=== PATIENT | male | born 1950 | race Caucasian/White ===

== ENCOUNTER 2021-03-21 12:25 | Observation (INO) ==
[2021-03-21 12:40] VITALS: BMI 36.5
--- NOTE | 2021-03-21 13:53 | DR.URIAD ---
HPI Time Seen Time Seen by Provider: 03/21/21 13:49 PCP Primary Care Physician: Page HPI Comment HPI Comment: PATIENT WITH A HISTORY OF COPD, TYPE 2 DIABETES AND HYPERTENSION COMPLAINS OF DYSPNEA, NONPRODUCTIVE COUGH X 4 DAYS, LEFT SIDED PAIN UPON INSP IRATION. HAS HAD MODERNA VACCINES. DENIES DIAPHOREIS AND PALPITATIONS. Complaint Chief Complaint Doctors Comments: COUGH, LEFT SIDED CHEST PAIN Chief Complaint:: Pt c/o fever . He denies fever since that day. He rep orts cough, abd from coughing, shortness of breath, nausea and fatigue. COVID-19 Coronavirus risk:travel/contact w/high risk person: No Has patient experienced Coronavirus symptoms: Yes Coronavirus symptoms experienced: Fever and Shortness of Breath Source History Provided: Patient and Significant Other Mode of Arrival Mode of Arrival: Ambulatory Timing Onset of Chief Complaint: 03/21/21 Context History of Respiratory: Asthma (COPD) Quality Quality of Cough: Nonproductive Associated Signs and Symptoms Other Signs and Symptoms: Cough PMH PMH Past Medical History: Yes Past Medical History: COPD, Diabetes and Hypertension Past Surgical History: Yes Surgical History: Ortho Surgery Family History History of Family Medical Conditions: Yes Family Medical History: Hypertension Social History Does patient currently use any type of tobacco product: No Have you used tobacco products in the last 12 months: No Type of Tobacco Use: None Does any household member use tobacco: No Alcohol Use: None Do you use any recreational Drugs:: No Lives With: Family Lives Where: Home Travel Risk Coronavirus risk:travel/contact w/high risk person: No Has patient experienced Coronavirus symptoms: Yes Coronavirus symptoms experienced: Fever and Shortness of Breath Infectious screening In the last 2 months have you had wt loss of >10#?: NO Have you had fever, night sweats or hemotysis?: No Have you traveled outside the country in the last 6 months?: No Isolation: Droplet ROS Review of Systems Constitutional: No Symptoms Reported Eyes: No Symptoms Reported ENTM: No Symptoms Reported Respiratoy: Dry Cough Cardiovascular: Chest Pain Gastrointestinal/Abdominal: No Symptoms Reported Genitourinary: No Symptoms Reported Neurological: No Symptoms Reported Musculoskeletal: No Symptoms Reported Integumentary: No Symptoms Reported Hematologic/Lymphatic: No Symptoms Reported Endocrine: No Symptoms Reported Psychiatric: No Symptoms Reported All Other Systems: Reviewed and Negative PE Vital Signs Vitals: Temperature 99.9 F Pulse Rate 93 Respiratory Rate 23 Blood Pressure 138/94 O2 Sat by Pulse Oximetry 95 General General Appearance: Alert and In Distress (PAIN UPON BREATHING) Head Head Exam: Normal Inspection and Atraumatic Eyes Eye exam: Normal Appearance and PERRL ENT ENT Exam: Normal Exam and Normal Oropharynx TM/Canal Exam: Bilateral: Normal Neck Neck Exam: Normal Inspection and Full ROM Chest Chest Inspection: Normal Inspection, Symmetric Chest Wall Rise and Tenderness (MARKED TENDERNESS LEFT LATERAL RIBS 5TH TO 10TH, NO CREPITUS ) Respiratory Respiratory Exam: Normal Lung Sounds Bilat (EXCEPT FOR DECREASED BREATH SOUNDS LEFT BASE) and Chest Wall Tenderness (MARKED TENDERNESS LEFT LATERAL RIBS 4TH TO 8TH ) Respiratory Exam: Bilateral: Clear to Auscultation and Left: Decreased Breath Sounds Cardiovascular Cardiovascular Exam: Regular Rate, Normal Rhythm and Tachycardia Abdominal Exam Abdominal Exam: Normal Inspection, Normal Bowel Sounds and Soft Extremeties Extremities Exam: Normal Inspection and Full ROM Back Back Exam: Normal Inspection Neurologic Neurological Exam: Alert and Oriented X3 Skin Skin Exam: Warm MDM Additional Information Findings: PLEURISY, COVID PULMONARY EMBOLISM Differential Diagnosis Differential Diagnosis: Influenza A, Influenza B, Influenza:H1N1 and Pneumonia COURSE Treatment Treatment: IV NORMAL SALINE 250ML/HR LEVAQUIN 500MG IVPB, SOLUMEDROL 125MG, ZOFRAN 4MG, MORPHINE 4MG IV, DISCUSSED WITH PATIENT AT 1820 CONCERNING ADMISSION FOR TREATMENT OF COVID PNEUMONIA AND PATIENT REFUSES REMDESIVIR INTRAVENOUS Reevaluation 1st: Unchanged Consultation Call Returned: 18:18 Consultation Comments: FINDINGS DISCUSSED WITH DR ROSALES FOR OBSERVATION ROR Labs Reviewed Laboratory Results Reviewed?: Yes Result Diagrams: 03/21/21 14:18 03/21/21 14:18 Laboratory: WBC 6.9 X10^3/uL (3.6-10.0) 03/21/21 14:18 RBC 6.23 X10^6/uL (4.7-6.0) H 03/21/21 14:18 Hgb 17.5 g/dL (13.5-18.0) 03/21/21 14:18 Hct 53.3 % (42.0-54.0) 03/21/21 14:18 MCV 85.6 fL (80.0-100.0) 03/21/21 14:18 MCH 28.1 pg (27.0-34.0) 03/21/21 14:18 MCHC 32.8 g/dL (33.0-35.0) L 03/21/21 14:18 RDW 17.5 % (11.6-16.5) H 03/21/21 14:18 Plt Count 130 X10^3/uL (150.0-450.0) L 03/21/21 14:18 Plt Count Comment Decreased (ADEQUATE) 03/21/21 14:18 MPV 9.7 fL (7.4-11.0) 03/21/21 14:18 Neut % (Auto) 66.1 % (42.0-75.0) 03/21/21 14:18 Lymph % (Auto) 8.9 % (21.0-51.0) L 03/21/21 14:18 [place] % (Auto) 23.6 % (0.0-13.0) H 03/21/21 14:18 Eos % (Auto) 1.1 % (0.9-2.9) 03/21/21 14:18 Baso % (Auto) 0.3 % (0.2-1.0) 03/21/21 14:18 Neut # (Auto) 4.6 x10^3/uL (2.2-4.8) 03/21/21 14:18 Lymph # (Auto) 0.6 X10^3/uL (1.3-2.9) L 03/21/21 14:18 [place] # (Auto) 1.6 x10^3/uL (0.3-0.8) H 03/21/21 14:18 Eos # (Auto) 0.1 x10^3/uL (0.0-0.2) 03/21/21 14:18 Baso # (Auto) 0.0 X10^3/uL (0.0-0.1) 03/21/21 14:18 Absolute Nucleated RBC 0.1 /100WBC 03/21/21 14:18 Total Counted 100 03/21/21 14:18 Neutrophils % (Manual) 67 % (39-76) 03/21/21 14:18 Lymphocytes % (Manual) 12 % (13-43) L 03/21/21 14:18 Monocytes % (Manual) 19 % (4-9) H 03/21/21 14:18 Eosinophils % (Manual) 2 % (0-6) 03/21/21 14:18 Plt Morphology Comment Normal (NORMAL) 03/21/21 14:18 RBC Morphology Abnormal (NORMAL) 03/21/21 14:18 Anisocytosis Slight A 03/21/21 14:18 D-Dimer 0.37 ug/ml (0.0-0.57) 03/21/21 14:18 Sodium 135 mmol/L (136-145) L 03/21/21 14:18 Corrected Sodium TNP 03/21/21 14:18 Potassium 4.5 mmol/L (3.5-5.1) 03/21/21 14:18 Chloride 98 mmol/L (98-107) 03/21/21 14:18 Carbon Dioxide 26.6 mmol/L (21-32) 03/21/21 14:18 BUN 28 mg/dL (7-18) H 03/21/21 14:18 Creatinine 1.66 mg/dL (0.70-1.30) H 03/21/21 14:18 Est GFR (MDRD) Af Amer 53 (>60) L 03/21/21 14:18 Est GFR (MDRD) Non-Af 44 (>60) L 03/21/21 14:18 Glucose 109 mg/dL (65-99) H 03/21/21 14:18 Calcium 8.6 mg/dL (8.5-10.1) 03/21/21 14:18 Corrected Calcium TNP 03/21/21 14:18 Magnesium 2.2 mg/dL (1.7-2.9) 03/21/21 14:18 Ferritin 228 ng/mL (26-388) 03/21/21 14:18 Total Bilirubin 0.80 mg/dL (0.2-1.0) 03/21/21 14:18 AST 38 Units/L (15-37) H 03/21/21 14:18 ALT 48 Units/L (12-78) 03/21/21 14:18 Alkaline Phosphatase 69 Units/L (46-116) 03/21/21 14:18 Troponin I < 0.02 ng/mL (0-1.5) 03/21/21 14:18 C-Reactive Protein 64.00 mg/L (0-3.0) H 03/21/21 14:18 Total Protein 7.1 g/dL (6.4-8.2) 03/21/21 14:18 Albumin 3.4 g/dL (3.4-5.0) 03/21/21 14:18 Globulin 3.7 g/dL (2.5-4.5) 03/21/21 14:18 Albumin/Globulin Ratio 0.9 Ratio (1.1-2.1) L 03/21/21 14:18 Specimen Type Clean catch urine 03/21/21 14:09 Urine Color Yellow (YELLOW) 03/21/21 14:09 Urine Appearance Clear (CLEAR) 03/21/21 14:09 Urine pH 5.0 (5.0 - 8.0) 03/21/21 14:09 Ur Specific [place] 1.025 (1.000-1.030) 03/21/21 14:09 Urine Protein 2+ (NEGATIVE) 03/21/21 14:09 Urine Glucose (UA) Negative (NEGATIVE) 03/21/21 14:09 Urine Ketones 1+ (NEGATIVE) 03/21/21 14:09 Urine Occult Blood Negative (NEGATIVE) 03/21/21 14:09 Urine Nitrite Negative (NEGATIVE) 03/21/21 14:09 Urine Bilirubin Negative (NEGATIVE) 03/21/21 14:09 Urine Urobilinogen 1+ (NORMAL) 03/21/21 14:09 Ur Leukocyte Esterase Negative (NEGATIVE) 03/21/21 14:09 Urine RBC 0-2 /HPF (0-3) 03/21/21 14:09 Urine WBC 0-2 /HPF (0-5) 03/21/21 14:09 Ur Squamous Epith Cells Rare /HPF (NEGATIVE) 03/21/21 14:09 Urine Bacteria Trace /HPF (NEGATIVE) 03/21/21 14:09 Urine Mucus Rare /HPF (NEGATIVE) 03/21/21 14:09 Ur Culture Indicated? No/not indicated 03/21/21 14:09 SARS-CoV-2 (PCR) Positive (NEGATIVE) A 03/21/21 14:06 Influenza Type A (PCR) Negative (NEGATIVE) 03/21/21 14:06 Influenza Type B (PCR) Negative (NEGATIVE) 03/21/21 14:06 RSV (PCR) Negative (NEGATIVE) 03/21/21 14:06 XRAY X-ray Results: PORTABLE CHEST - PERIHILAR INTERSTITAL OPACITES EKG Rate: 94 Rhythm: NSR Opioid Opioid Risk Tool Age (Antonio box if 16-45): No History of Preadolescent Sexual Abuse: No Total: 0 Total Score Risk Category: Low Risk Copyright: Thomas FERRO predicting aberrant behaviors Diagnosis Discharge Problem: Pneumonia due to 2019 novel coronavirus, Pleurisy Instructions Forms: EUA Consent
[2021-03-21] MEDS ORDERED: NS 1,000 ML IV 1,000 ML IV STA (13:54)
[2021-03-21] MEDS ORDERED: ZOFRAN INJ 4 MG VIAL IVP ONE (13:54)
[2021-03-21] MEDS ORDERED: LEVAQUIN PREMIX IV 500 MG 500 MG/100 ML BAG IV ONE ×2 (13:54→14:08)
[2021-03-21] MEDS ORDERED: MORPHINE SULFATE INJ 2 MG INJ IVP ONE (13:54)
[2021-03-21] MEDS ORDERED: NS 1,000 ML IV 1,000 ML ONE (14:08)
[2021-03-21] MEDS ORDERED: MORPHINE SULFATE INJ 2 MG INJ ONE (14:08)
[2021-03-21] MEDS ORDERED: ZOFRAN INJ 4 MG VIAL ONE (14:08)
[2021-03-21 14:40] LABS: BASOPHILS % (AUTO) 0.3 % (0.2-1.0); EOSINOPHILS # (AUTO) 0.1 x10^3/uL (0.0-0.2); EOSINOPHILS % (AUTO) 1.1 % (0.9-2.9); HEMATOCRIT 53.3 % (42.0-54.0); HEMOGLOBIN 17.5 g/dL (13.5-18.0); LYMPHOCYTES # (AUTO) 0.6 X10^3/uL (1.3-2.9); LYMPHOCYTES % (AUTO) 8.9 % (21.0-51.0); MEAN CORPUSCULAR HEMOGLOBIN 28.1 pg (27.0-34.0); MEAN CORPUSCULAR HGB CONC 32.8 g/dL (33.0-35.0); MEAN CORPUSCULAR VOLUME 85.6 fL (80.0-100.0); MEAN PLATELET VOLUME 9.7 fL (7.4-11.0); MONOCYTES # (AUTO) 1.6 x10^3/uL (0.3-0.8); MONOCYTES % (AUTO) 23.6 % (0.0-13.0); NEUTROPHILS # (AUTO) 4.6 x10^3/uL (2.2-4.8); NEUTROPHILS % (AUTO) 66.1 % (42.0-75.0); PLATELET COUNT 130 X10^3/uL (150.0-450.0); RED BLOOD COUNT 6.23 X10^6/uL (4.7-6.0); RED CELL DISTRIBUTION WIDTH 17.5 % (11.6-16.5); WHITE BLOOD COUNT 6.9 X10^3/uL (3.6-10.0)
[2021-03-21 14:53] LABS: ALANINE AMINOTRANSFERASE 48 Units/L (12-78); ALBUMIN 3.4 g/dL (3.4-5.0); ALKALINE PHOSPHATASE 69 Units/L (46-116); ASPARTATE AMINO TRANSFERASE 38 Units/L (15-37); BLOOD UREA NITROGEN 28 mg/dL (7-18); CALCIUM 8.6 mg/dL (8.5-10.1); CARBON DIOXIDE 26.6 mmol/L (21-32); CHLORIDE 98 mmol/L (98-107); CREATININE 1.66 mg/dL (0.70-1.30); MAGNESIUM 2.2 mg/dL (1.7-2.9); SODIUM 135 mmol/L (136-145); TOTAL PROTEIN 7.1 g/dL (6.4-8.2); TROPONIN I < 0.02 ng/mL (0-1.5); eGFR NON BLACK RACES 44 (>60)
[2021-03-21 14:58] LABS: BILIRUBIN,URINE NEGATIVE (NEGATIVE); BLOOD/HEMOGLOBIN,URINE NEGATIVE (NEGATIVE); GLUCOSE, URINE NEGATIVE (NEGATIVE); KETONES,URINE 1+ (NEGATIVE); LEUKOCYTE ESTERASE ,URINE NEGATIVE (NEGATIVE); NITRITES,URINE NEGATIVE (NEGATIVE); PROTEIN,URINE 2+ (NEGATIVE); UROBILINOGEN,URINE 1+ (NORMAL)
[2021-03-21 15:09] LABS: APPEARANCE,URINE CLEAR (CLEAR); COLOR,URINE YELLOW (YELLOW)
[2021-03-21 15:10] LABS: BACTERIA,URINE TRACE /HPF (NEGATIVE); MUCUS,URINE RARE /HPF (NEGATIVE); RBC,URINE 0-2 /HPF (0-3); SQUAMOUS EPITHELIAL CELL,UR RARE /HPF (NEGATIVE)
--- NOTE | 2021-03-21 15:59 | RAD ---
HISTORY: [Cough]. [Dyspnea].[Single portable view] of the chest.Comparison: [None].Findings:The trachea is midline. The cardiac silhouette is borderline enlarged.There are increased [perihilar] interstitial opacities seen, suggesting [central bronchitis or a viral respiratory infection]. Please correlate medically and clinically. The remaining lungs [are otherwise clear without focal infiltrate or pleural effusion]. The bony thorax [is unremarkable].IMPRESSION:Chest findings suggesting a developing viral respiratory tract infection, as above.Please medically exclude COVID-19 and follow-up to resolution.No lobar infiltrates or pleural effusion seen. Please correlate medically.Electronically signed by: IRENE SALOMON III (Mar 21, 2021 15:57:43)
[2021-03-21 16:19] LABS: ANISOCYTOSIS SLIGHT; PLATELET MORPHOLOGY COMMENT NORMAL (NORMAL)
[2021-03-21] MEDS ORDERED: SOLU-Medrol 125 MG VIAL IVP ONE (18:22)
[2021-03-21] MEDS ORDERED: SOLU-Medrol 125 MG VIAL ONE (18:43)
[2021-03-21] MEDS ORDERED: NovoLIN R (or HumuLIN R) SUBCUT PRN (19:13)
[2021-03-21] MEDS ORDERED: ZOFRAN INJ 4 MG VIAL IVP PRN (19:16)
[2021-03-21] MEDS ORDERED: SNACK - Diabetic Appropriate PO SCH (20:00)
[2021-03-21] MEDS ORDERED: SALINE 3% 15 ML NEB TX ONE (20:47)
[2021-03-21] MEDS ORDERED: SALINE 3% 15 ML NEB TX NEB ONE (21:05)
[2021-03-21 21:06] LABS: ABG ALLEN TEST POS; ABG BASE EXCESS 2.6 mmol/L (-2.0-2.0); ABG HCO3 27.9 mmol/L (22-26)
[2021-03-21] MEDS: DUONEB 0.5 MG/3 MG (3 mL) NEB SCH (21:07)
[2021-03-21] MEDS: PULMICORT NEB TX 0.5 MG NEB SCH (21:07)
[2021-03-21] MEDS: NS 1,000 ML IV 1,000 ML IV SCH (21:31)
[2021-03-21] MEDS: SOLU-Medrol 125 MG VIAL IVP SCH (21:33)
[2021-03-22] MEDS: SOLU-Medrol 125 MG VIAL IVP SCH ×2 (02:23→08:49)
[2021-03-22] MEDS: MORPHINE SULFATE INJ 2 MG INJ IVP PRN ×2 (02:23→10:25)
[2021-03-22 05:00] LABS: BASOPHILS % (AUTO) 0.3 % (0.2-1.0); HEMATOCRIT 49.6 % (42.0-54.0); HEMOGLOBIN 16.8 g/dL (13.5-18.0); LYMPHOCYTES # (AUTO) 0.3 X10^3/uL (1.3-2.9); LYMPHOCYTES % (AUTO) 8.1 % (21.0-51.0); MEAN CORPUSCULAR HEMOGLOBIN 28.6 pg (27.0-34.0); MEAN CORPUSCULAR HGB CONC 33.8 g/dL (33.0-35.0); MEAN CORPUSCULAR VOLUME 84.8 fL (80.0-100.0); MEAN PLATELET VOLUME 9.3 fL (7.4-11.0); MONOCYTES # (AUTO) 0.3 x10^3/uL (0.3-0.8); MONOCYTES % (AUTO) 7.3 % (0.0-13.0); NEUTROPHILS # (AUTO) 3.5 x10^3/uL (2.2-4.8); NEUTROPHILS % (AUTO) 84.3 % (42.0-75.0); PLATELET COUNT 127 X10^3/uL (150.0-450.0); RED BLOOD COUNT 5.85 X10^6/uL (4.7-6.0); RED CELL DISTRIBUTION WIDTH 17.1 % (11.6-16.5); WHITE BLOOD COUNT 4.2 X10^3/uL (3.6-10.0)
[2021-03-22 05:34] LABS: ALBUMIN 2.9 g/dL (3.4-5.0); CALCIUM 8.1 mg/dL (8.5-10.1); CARBON DIOXIDE 25.3 mmol/L (21-32); CREATININE 1.66 mg/dL (0.70-1.30); TOTAL PROTEIN 6.6 g/dL (6.4-8.2)
[2021-03-22] MEDS ORDERED: NovoLIN R (or HumuLIN R) ONE ×2 (05:47→05:52)
[2021-03-22] MEDS: NovoLIN R (or HumuLIN R) SUBCUT PRN ×2 (05:52→11:44)
[2021-03-22] MEDS: NS 1,000 ML IV 1,000 ML IV SCH (05:55)
[2021-03-22] MEDS: PULMICORT NEB TX 0.5 MG NEB SCH (08:51)
[2021-03-22] MEDS: DUONEB 0.5 MG/3 MG (3 mL) NEB SCH (08:51)
[2021-03-22] MEDS ORDERED: LEVAQUIN PREMIX IV 500 MG 500 MG/100 ML BAG IV SCH (09:00)
[2021-03-22] MEDS ORDERED: TOPROL XL PO SCH (09:00)
[2021-03-22] MEDS ORDERED: PROTONIX TAB 40 MG PO SCH (09:00)
[2021-03-22] MEDS ORDERED: REGEN-COV VIAL 10 ML, DRUG FILTER EXTENSION SET * 1 EA in NS 100 ML IV 100 ML IV ONE ×2 (09:14)
[2021-03-22] MEDS ORDERED: LOVENOX INJ 40 MG SYR SC ONE (09:14)
[2021-03-22] MEDS ORDERED: BENADRYL INJ 50 MG VIAL IVP ONE (10:38)
[2021-03-22] MEDS ORDERED: TYLENOL 325 MG TAB PO ONE ×2 (10:38→10:41)
[2021-03-22] MEDS ORDERED: BENADRYL INJ 50 MG VIAL ONE (10:41)
[2021-03-22 12:08] VITALS: BP 150/78
--- NOTE | 2021-03-22 17:23 | DR.CARTERS ---
Short Stay Summary - Admission Date Date of Admission: 03/21/21 - Discharge Date Discharge Date: 03/22/21 - Admission Diagnoses (1) Bronchitis due to 2019 novel coronavirus Status: Acute (2) COVID-19 Status: Acute (3) Pleurisy Status: Acute - Hospital Course Hospital Course: TIME SPENT ON CLINICAL ASSESSMENT, REVIEWING LABS AND IMAGING, DECISION MAKING, AND DOCUMENTATION GREATER THAN 45 MINUTES. IS A 71 YEAR OLD PATIENT OF MAHSA LAGUERRE. HE PRESENTED TO THE ER WITH COMPLAINTS OF FEVER, COUGH, SHORTNESS OF BREATH, NAUSEA, FATIGUE, AND LEFT SIDED CHEST PAIN. SYMPTOMS STARTED AROUND FOUR DAYS PRIOR TO ARRIVAL. HE DENIED DIAPHORESIS OR PALPATATIONS. HE REPORTED A HISTORY OF COPD, ASTHMA, DM II, AND HTN. HE REPORTED HAVING MODERNA VACCINES, BUT DENIED KNOWLEDGE OF BEING IN CONTACT WITH ANYONE WITH COVID. ON ARRIVAL TO THE ER, VITALS WERE 99.9-96-22-93%-127/80. LABS WERE OBTAINED. ABNORMAL LAB VALUES INCLUDED THE FOLLOWING: RBC 6.23, PLT COUNT 130, SODIUM 135, BUN 28, CREATININE 1.66, GLUCOSE 109, AST 38, CRP 64.0. ABG REVEALED: PH 7.400, PC02 45, P02 59, HC03 27.9, 02 SAT 90, BASE EXCESS 2.6, A-A GRADIENT 34, FI02 21.0. URINALYSIS UNREMARKABLE. PATIENT WAS POSITIVE FOR COVID-19. BLOOD CULTURES WERE SET UP. EKG REVEALED: SINUS RHYTHM WITH HR 94. CHEST XRAY OBTAINED AND REVEALED: Chest findings suggesting a developing viral respiratory tract infection. Please medically exclude COVID-19 and follow-up to resolution. No lobar infiltrates or pleural effusion seen. IN THE ER, HE WAS GIVEN LEVAQUIN 500MG IV X 1 DOSE, MORPHINE SULFATE 2MG IV X 1 DOSE, NORMAL SALINE 1 LITER BOLUS, ZOFRAN 4MG IV X 1 DOSE, SOLU-MEDROL 125MG IV X 1 DOSE. HE WAS ADMITTED TO THE HOSPITAL FOR FURTHER EVALUATION AND TREATMENT OF COVID-19, ACUTE BRONCHITIS, PLEURISY. HE WAS STARTED ON NORMAL SALINE AT 75 ML/HR, LEVAQUIN 500MG IV DAILY, SOLU-MEDROL 80MG IV Q6H, MORPHINE SULFATE 2MG IV Q4H PRN, DUONEBS QID, PULMICORT NEBS BID, PROTONIX 40MG PO DAILY, METOPROLOL 50MG PO DAILY, OTBS ACHS, HUMULIN R SLIDING SCALE. HE REFUSED REMDESIVIR. OTHERWISE, WE PLANNED TO FOLLOW UP WITH AM LABS AND CONTINUE TO MONITOR. ON THE MORNING FOLLOWING ADMISSION, PATIENT IS ALERT AND ORIENTED, LYING IN BED ON MORNING ROUNDS. HE CONTINUES WITH COUGH, SHORTNESS OF BREATH, AND FATIGUE, BUT DOES REPORT IMPROVEMENT IN SYMPTOMS SINCE ADMISSION. HE HAS BEEN ON ROOM AIR AND SATURATIONS HAVE REMAINED IN THE 90s. HE HAS BEEN AFEBRILE THROUGHOUT THE NIGHT. HIS VITALS THIS MORNING ARE: 97.5-100-20-99%-153/73. LABS WERE OBTAINED. ABNORMAL LAB VALUES INCLUDE THE FOLLOWING: PLT COUNT 127, BUN 30, CREATININE 1.66, GLUCOSE 203, CALCIUM 8.1, ALBUMIN 2.9. BLOOD CULTURES PENDING. WE DISCUSSED THE BENEFITS OF REGEN-COV INFUSION. DUE TO PATIENT NOT REQUIRING OXYGEN, WE PROCEEDED WITH INFUSION OF REGEN-COV. HE TOLERATED INFUSION WELL. FOLLOWING TRANSFUSION, WE PLANNED FOR DISCHARGE. INSTRUCTIONS FOR MEDICATIONS AND FOLLOW UP WERE DISCUSSED WITH PATIENT AND FAMILY. THEY VERBALIZED UNDERSTANDING OF ALL ORDERS. HE WAS DISCHARGED HOME WITH NEW PRESCRIPTIONS FOR IVERMECTIN 21MG PO DAILY X 5 DAYS, TESSALON PERLES 200MG PO TID PRN COUGH, TUSSIONEX 5ML PO Q12H PRN COUGH, MEDROL DOSEPACK, AND SYMBICORT INHALER 1 PUFF BID. HE WAS INSTRUCTED TO FOLLOW UP WITH ON 03/29/21. PATIENT DISCHARGED HOME WITH FAMILY IN STABLE, IMPROVED CONDITION. TIME SPENT ON CLINICAL ASSESSMENT, REVIEWING LABS AND IMAGING, DECISION MAKING, DISCHARGE INSTRUCTIONS, PREPARING DISCHARGE PAPERS, AND DOCUMENTATION GREATER THAN 75 MINUTES. - Discharge Medications Discharge Medications: Home Medication List Aundreamargaretcole JulianElissa U-100 Insulin 15 unit SUBCUT DAILY 03/21/21 [History] albuterol sulfate 2.5 mg INHALATION Q6HR PRN 03/21/21 [History] albuterol sulfate [Proventil HFA] 1 puff INHALATION PRN PRN 03/21/21 [History] aspirin 81 mg PO DAILY 03/21/21 [History] cholecalciferol (vitamin D3) [Vitamin D3] 50 mcg PO DAILY 03/21/21 [History] furosemide 10 mg PO DAILY 03/21/21 [History] levocetirizine [Xyzal] 5 mg PO DAILY 03/21/21 [History] lisinopril-hydrochlorothiazide 1 tab PO DAILY 03/21/21 [History] metoprolol succinate 50 mg PO DAILY 03/21/21 [History] montelukast [Singulair] 10 mg PO DAILY 03/21/21 [History] naproxen [Naprosyn] 500 mg PO BID PRN 03/21/21 [History] omeprazole 40 mg PO DAILY 03/21/21 [History] pantoprazole [Protonix] 40 mg PO DAILY 03/21/21 [History] prednisone 10 - 20 mg PO DAILY 03/21/21 [History] rosuvastatin 20 mg PO DAILY 03/21/21 [History] tamsulosin 0.4 mg PO BID 03/21/21 [History] temazepam [Restoril] 30 mg PO QHS 03/21/21 [History] theophylline 400 mg PO DAILY 03/21/21 [History] tolterodine [Detrol] 1 mg PO BID 03/21/21 [History] zinc 50 mg PO DAILY 03/21/21 [History] benzonatate 200 mg PO TID PRN #30 cap 03/22/21 [Rx] budesonide-formoterol [Symbicort] 1 puff INHALATION BID #1 g 03/22/21 [Rx] hydrocodone-chlorpheniramine 5 ml PO Q12H PRN #150 ml MDD 10 ML 03/22/21 [Rx] ivermectin 21 mg PO DAILY #35 tab 03/22/21 [Rx] methylprednisolone [Medrol (Celso)] See Rx Instructions .ROUTE .COMPLEX #1 ea 03/22/21 [Rx] Prescriptions: benzonatate Tunde Jackson budesonide-formoterol [Symbicort] Tunde Jackson hydrocodone-chlorpheniramine Tunde Jackson ivermectin Tunde Jackson methylprednisolone [Medrol (Celso)] Tunde Jackson - Discharge Plan Disposition: 01 HOME, SELF-CARE Condition: Stable Prescriptions: benzonatate 200 mg PO TID PRN #30 cap PRN Reason: budesonide-formoterol [Symbicort] 1 puff INHALATION BID #1 g hydrocodone-chlorpheniramine 5 ml PO Q12H PRN #150 ml MDD 10 ML PRN Reason: ivermectin 21 mg PO DAILY #35 tab methylprednisolone [Medrol (Celso)] See Rx Instructions .ROUTE .COMPLEX #1 ea - Follow up/Referrals Follow up/Referrals: MAHSA CLEMONS [Primary Care Provider] - 03/29/21 9:40 am - Instructions Instructions: COVID-19 Frequently Asked Questions, 10 Things You Can Do to Manage Your COVID-19 Symptoms at Home - [facility] (10/15/2019), COVID-19, COVID-19: What Your Test Results Mean - [facility] (09/13/2019), COVID-19: How to Protect Yourself and Others - CDC, COVID-19: Quarantine vs. Isolation - [facility] (04/01/2020), Community-Acquired Pneumonia, Adult, [id number], COVID-19: What to Do if You Are Sick - [facility] (04/15/2020) Additional Instructions: DIET TOLERATED. ACTIVITY TOLERATED Forms: Excuse From Work or School, Precautions for COVID19, [facility], Patient Portal, Social Distancing
== END 2021-03-22 13:15 | disposition home or self-care (01) ==
LOC: ICU 12:33 → ER 12:33 → ICU 19:52
PROVIDERS: ADMIT Internal Medicine; ATTEND Internal Medicine
DX: E11.65 Type 2 diabetes mellitus with hyperglycemia; R07.89 Other chest pain; J20.8 Acute bronchitis due to other specified organisms; I10 Essential (primary) hypertension; R09.1 Pleurisy; J44.9 Chronic obstructive pulmonary disease, unspecified; R06.02 Shortness of breath; U07.1 COVID-19